=== PATIENT | male | born 1955 | race Caucasian/White ===

== ENCOUNTER 2017-11-08 18:25 | Emergency (ER) | payer OTHER ==
[~2017-11-08] VITALS: Ht 172.7 cm; Wt 122.5 kg
[2017-11-08] MEDS ORDERED: IBUP600 PO (18:32)
[2017-11-08] MEDS ORDERED: VALS80 (18:52)
[2017-11-08] MEDS ORDERED: ROSU10TA (18:52)
[2017-11-08] MEDS ORDERED: Aspir 8181 MG PO (18:53)
== END 2017-11-08 19:25 | disposition home or self-care (01) ==
LOC: ER 18:25
DX: S80.02XA Contusion of left knee, initial encounter (principal); I10 Essential (primary) hypertension; E78.00 Pure hypercholesterolemia, unspecified; Z79.899 Other long term (current) drug therapy; Z79.82 Long term (current) use of aspirin; V59.49XA Driver of pick-up truck or van injured in collision with other motor vehicles in traffic accident, initial encounter
CPT/HCPCS: 72040; 73564; 99283